=== PATIENT | female | born 1955 | race Caucasian/White ===

== ENCOUNTER → 2023-09-20 | Outpatient (CLI) | payer MEDICARE, OTHER ==
[~2023-09-20] VITALS: Ht 162.6 cm; Wt 65.9 kg
[~2023-09-20] MED LIST: ALBU6.7H6 INH; ALEC150C PO; AMLO1TAB24 PO; AMOX500T PO; ATEN50TA2 PO; FURO20TA2 PO; HYDR-4517 PO; LEVO1TAB39 PO; METF500T13 PO; MUCI600T31 PO; OMEP-173 PO; POTA10TA67 PO; PRED10TA2 PO; PREG25CA PO; PREG50CA3 PO; SENN-186 PO; SIMV40TA20 PO; TRAZ-257 PO; XANA1TAB2 PO; ZOLO100T PO
[2023-09-20 10:37] VITALS: BP 110/67; O2SAT 95
== END ==
LOC: M PAL 10:32
PROVIDERS: ATTEND Nurse Practitioner Adult Health
DX: C34.12 Malignant neoplasm of upper lobe, left bronchus or lung (principal); D63.8 Anemia in other chronic diseases classified elsewhere; G89.3 Neoplasm related pain (acute) (chronic); G89.29 Other chronic pain; G89.18 Other acute postprocedural pain; Z51.5 Encounter for palliative care; M25.561 Pain in right knee; M25.562 Pain in left knee; K59.00 Constipation, unspecified; R22.41 Localized swelling, mass and lump, right lower limb; R05.9 Cough, unspecified; R50.9 Fever, unspecified; R06.09 Other forms of dyspnea; F41.9 Anxiety disorder, unspecified; F32.9 Major depressive disorder, single episode, unspecified; R29.6 Repeated falls; Z90.2 Acquired absence of lung [part of]; Z92.21 Personal history of antineoplastic chemotherapy; Z92.3 Personal history of irradiation; Z79.622 Long term (current) use of Janus kinase inhibitor; Z90.710 Acquired absence of both cervix and uterus; Z90.722 Acquired absence of ovaries, bilateral; Z90.79 Acquired absence of other genital organ(s); Z79.84 Long term (current) use of oral hypoglycemic drugs; Z79.899 Other long term (current) drug therapy

== ENCOUNTER → 2023-10-10 | Outpatient (CLI) | payer MEDICARE, OTHER ==
[~2023-10-10] MED LIST changes: -PREG50CA3 PO
== END ==
LOC: M PLARAD 14:10
PROVIDERS: ATTEND Specialist
DX: C34.31 Malignant neoplasm of lower lobe, right bronchus or lung (principal); K44.9 Diaphragmatic hernia without obstruction or gangrene
CPT/HCPCS: 78815; A9552

== ENCOUNTER → 2023-10-18 | Outpatient (CLI) | payer MEDICARE, OTHER ==
[~2023-10-18] VITALS: Ht 162.6 cm; Wt 65.5 kg
[~2023-10-18] MED LIST changes: +PREG50CA3 PO
[2023-10-18 13:01] VITALS: BP 118/72; O2SAT 99
== END ==
LOC: M PAL 12:48
PROVIDERS: ATTEND Nurse Practitioner Adult Health
DX: Z51.5 Encounter for palliative care (principal); C34.12 Malignant neoplasm of upper lobe, left bronchus or lung; G89.18 Other acute postprocedural pain; G89.3 Neoplasm related pain (acute) (chronic); G89.29 Other chronic pain; F32.A Depression, unspecified; F41.9 Anxiety disorder, unspecified; R05.9 Cough, unspecified; R06.09 Other forms of dyspnea; R29.6 Repeated falls; Z90.2 Acquired absence of lung [part of]; Z92.21 Personal history of antineoplastic chemotherapy; Z92.3 Personal history of irradiation; Z79.622 Long term (current) use of Janus kinase inhibitor; Z90.710 Acquired absence of both cervix and uterus; Z90.722 Acquired absence of ovaries, bilateral; Z90.79 Acquired absence of other genital organ(s); Z79.84 Long term (current) use of oral hypoglycemic drugs; Z79.899 Other long term (current) drug therapy

== ENCOUNTER → 2023-11-15 | Outpatient (CLI) | payer MEDICARE, OTHER ==
[~2023-11-15] VITALS: Ht 162.6 cm; Wt 65.6 kg
[~2023-11-15] MED LIST changes: +COMBAER6 INH
[2023-11-15 13:09] VITALS: BP 98/56; O2SAT 98
== END ==
LOC: M PAL 13:02
PROVIDERS: ATTEND Nurse Practitioner Adult Health
DX: G89.3 Neoplasm related pain (acute) (chronic) (principal); G89.29 Other chronic pain; C34.12 Malignant neoplasm of upper lobe, left bronchus or lung; F32.A Depression, unspecified; F41.9 Anxiety disorder, unspecified; R05.9 Cough, unspecified; R06.09 Other forms of dyspnea; D64.9 Anemia, unspecified; K59.00 Constipation, unspecified; Z51.5 Encounter for palliative care; R29.6 Repeated falls; Z79.622 Long term (current) use of Janus kinase inhibitor; Z79.84 Long term (current) use of oral hypoglycemic drugs; Z79.899 Other long term (current) drug therapy; Z90.2 Acquired absence of lung [part of]; Z90.710 Acquired absence of both cervix and uterus; Z90.722 Acquired absence of ovaries, bilateral; Z90.79 Acquired absence of other genital organ(s); Z92.21 Personal history of antineoplastic chemotherapy; Z92.3 Personal history of irradiation

== ENCOUNTER → 2023-12-29 | Outpatient (CLI) | payer MEDICARE, OTHER ==
[~2023-12-29] VITALS: Ht 162.6 cm; Wt 66.1 kg
[~2023-12-29] MED LIST changes: +AMOX500C PO; +PERC10TA26 PO; +POTA-151 PO
[2023-12-29 14:03] VITALS: BP 122/74; O2SAT 97
== END ==
LOC: M PAL 13:30
PROVIDERS: ATTEND Nurse Practitioner Adult Health
DX: G89.3 Neoplasm related pain (acute) (chronic) (principal); G89.29 Other chronic pain; C34.12 Malignant neoplasm of upper lobe, left bronchus or lung; F32.A Depression, unspecified; F41.9 Anxiety disorder, unspecified; R05.9 Cough, unspecified; R06.09 Other forms of dyspnea; Z51.5 Encounter for palliative care; R29.6 Repeated falls; Z79.622 Long term (current) use of Janus kinase inhibitor; Z79.84 Long term (current) use of oral hypoglycemic drugs; Z79.899 Other long term (current) drug therapy; Z90.2 Acquired absence of lung [part of]; Z90.710 Acquired absence of both cervix and uterus; Z90.722 Acquired absence of ovaries, bilateral; Z90.79 Acquired absence of other genital organ(s); Z92.21 Personal history of antineoplastic chemotherapy; Z92.3 Personal history of irradiation

== ENCOUNTER → 2024-01-04 | Outpatient (CLI) | payer MEDICARE, OTHER ==
[~2024-01-04] MED LIST changes: +ALBU8.5H
== END ==
LOC: M PLAIMG 13:39
PROVIDERS: ATTEND Internal Medicine Critical Care Medicine
DX: R91.8 Other nonspecific abnormal finding of lung field (principal); J90 Pleural effusion, not elsewhere classified; J18.9 Pneumonia, unspecified organism

== ENCOUNTER → 2024-01-05 | Outpatient (REF) | payer MEDICARE, OTHER ==
[~2024-01-05] MED LIST changes: -ALBU8.5H
[2024-01-05 15:33] LABS: C REACTIVE PROTEIN QUANTITATIV < 0.40 MG/DL (<1.0)
[2024-01-05 15:38] LABS: FREE T4 1.07 NG/DL (0.89-1.76); THYROID STIMULATING HORMONE 3.545 uIU/ML (0.55-4.78)
[2024-01-05 15:39] LABS: TOTAL 25(OH) VITAMIN D 29.3 NG/ML (20.0-100.0)
== END ==
LOC: M LAB REF 14:45
PROVIDERS: ATTEND Internal Medicine Critical Care Medicine
DX: R53.83 Other fatigue (principal); Z79.899 Other long term (current) drug therapy

== ENCOUNTER → 2024-01-06 | Outpatient (CLI) | payer MEDICARE, OTHER ==
[~2024-01-06] MED LIST changes: +ALBU8.5H; +ISOVUE-370 76% 100ML VIAL As Ordered ONE
== END ==
LOC: M RAD 12:54
PROVIDERS: ATTEND Specialist
DX: C34.90 Malignant neoplasm of unspecified part of unspecified bronchus or lung (principal)
CPT/HCPCS: 71260; Q9967

== ENCOUNTER → 2024-04-02 | Outpatient (REF) | payer MEDICARE, OTHER ==
[~2024-04-02] MED LIST changes: +ALPR1TAB3 PO; +BACT800T5 PO; +ERGO500029 PO; +GUAI600T54 PO; +HYDR-4517; -ISOVUE-370 76% 100ML VIAL As Ordered ONE; +OMEP40CA4 PO; +OXYC10TA3; +OXYC10TA3 PO; +SENN-83 PO; +VALT1TAB PO
[2024-04-02 13:43] LABS: HEMOGLOBIN A1c 4.9 % (4.0-6.0)
[2024-04-02 13:50] LABS: ALBUMIN 3.7 G/DL (3.2-5.2); BILIRUBIN,TOTAL 0.5 MG/DL (0.3-1.2); CALCIUM LEVEL 9.4 MG/DL (8.3-10.6); CHOLESTEROL RISK RATIO 2.96 (<5); CREATININE FOR GFR 1.27 MG/DL (0.55-1.30); GLOMERULAR FILTRATION RATE 44.5 (>45); HDL CHOLESTEROL 54.7 MG/DL (>40); LDL CHOLESTEROL 61.1 MG/DL (<100); NON-HDL-C 107.3 MG/DL; POTASSIUM SERUM 3.8 MMOL/L (3.5-5.1); TOTAL PROTEIN 6.5 G/DL (5.7-8.2)
== END ==
LOC: M LAB REF 13:03
PROVIDERS: ATTEND Internal Medicine
DX: E78.5 Hyperlipidemia, unspecified (principal); E11.9 Type 2 diabetes mellitus without complications

== ENCOUNTER → 2024-04-10 | Outpatient (CLI) | payer MEDICARE, OTHER ==
[~2024-04-10] MED LIST changes: -ALBU8.5H; +ALBU8.5H INH; +CYMB60CA4 PO; +DOXY-323 PO; +DULO1CAP6 PO; +ELIQ5TAB PO; +LEVO750T14 PO; +MUCI1TAB16 PO; +OMEP40CA5 PO; +SENN-187 PO; -SENN-83 PO; +VALA1TAB5 PO
== END ==
LOC: M PAL 13:23
PROVIDERS: ATTEND Nurse Practitioner Adult Health
DX: G89.3 Neoplasm related pain (acute) (chronic) (principal); G89.29 Other chronic pain; C34.12 Malignant neoplasm of upper lobe, left bronchus or lung; F32.A Depression, unspecified; F41.9 Anxiety disorder, unspecified; R06.09 Other forms of dyspnea; Z92.3 Personal history of irradiation; Z51.5 Encounter for palliative care; R29.6 Repeated falls; Z79.622 Long term (current) use of Janus kinase inhibitor; Z79.84 Long term (current) use of oral hypoglycemic drugs; Z79.891 Long term (current) use of opiate analgesic; Z79.899 Other long term (current) drug therapy; Z90.2 Acquired absence of lung [part of]; Z90.710 Acquired absence of both cervix and uterus; Z90.722 Acquired absence of ovaries, bilateral; Z90.79 Acquired absence of other genital organ(s); Z92.21 Personal history of antineoplastic chemotherapy; R05.9 Cough, unspecified

== ENCOUNTER → 2024-04-18 | Outpatient (CLI) | payer MEDICARE, OTHER ==
[~2024-04-18] MED LIST changes: +ALBU8.5H; -ALBU8.5H INH; -CYMB60CA4 PO; -DOXY-323 PO; -ELIQ5TAB PO; +ISOVUE-370 76% 100ML VIAL As Ordered ONE; -LEVO750T14 PO; -MUCI1TAB16 PO; -OMEP40CA5 PO; +PROHANCE 279.3MG/ML 15ML VIAL As Ordered ONE; -SENN-187 PO; +SENN-83 PO; -VALA1TAB5 PO
== END ==
LOC: M RAD 12:29
PROVIDERS: ATTEND Specialist
DX: C34.90 Malignant neoplasm of unspecified part of unspecified bronchus or lung (principal); K76.0 Fatty (change of) liver, not elsewhere classified
CPT/HCPCS: 70553; 71260; A9576; Q9967

== ENCOUNTER 2024-05-24 02:29 | Inpatient (IN) | payer MEDICARE, OTHER ==
[~2024-05-24] VITALS: Ht 162.6 cm; Wt 71.8 kg
[~2024-05-24 02:29] MED LIST changes: -ALBU8.5H; +ALBU8.5H INH; +CYMB60CA4 PO; -ISOVUE-370 76% 100ML VIAL As Ordered ONE; -PROHANCE 279.3MG/ML 15ML VIAL As Ordered ONE; +SENN-187 PO; -SENN-83 PO
[2024-05-24 04:16] LABS: VENOUS BASE EXCESS 4.4 (-2.0-2.0); VENOUS HCO3 29.8 MMOL/L (23.0-27.0); VENOUS O2 SATURATION 76.2 % (60.0-80.0); VENOUS PARTIAL PRESSURE CO2 48.4 mmHg (38.0-50.0); VENOUS PARTIAL PRESSURE O2 44.6 mmHg (30.0-50.0); VENOUS PH 7.407 UNITS (7.330-7.430); VENOUS STANDARD HCO3 28.1 MMOL/L; VENOUS TOTAL CO2 31.3 MMOL/L (24.0-28.0)
[2024-05-24 04:21] LABS: BASO % 0.4 % (0.0-1.0); EOS # 1.3 10^3/uL (0.0-0.5); EOS % 13.2 % (0.0-3.0); HEMATOCRIT 25.7 % (36.0-47.0); HEMOGLOBIN 8.7 g/dl (12.0-15.5); LYMPH # 1.2 10^3/uL (1.5-5.0); LYMPH % 12.5 % (24.0-44.0); MEAN CORPUSCULAR HEMOGLOBIN 35.2 pg (27.0-33.0); MEAN CORPUSCULAR HGB CONC 33.9 g/dl (32.0-36.5); MONO # 0.8 10^3/uL (0.0-0.8); MONO % 8.2 % (2.0-8.0); NEUTROPHILS # 6.4 10^3/uL (1.5-8.5); NEUTROPHILS % 65.3 % (36.0-66.0); PLATELET COUNT, AUTOMATED 174 10^3/uL (150-450); RED BLOOD COUNT 2.47 10^6/uL (4.00-5.40); WHITE BLOOD COUNT 9.8 10^3/uL (4.0-10.0)
[2024-05-24 04:55] LABS: ALBUMIN 3.3 G/DL (3.2-5.2); BILIRUBIN,DIRECT 0.2 MG/DL (<0.4); BILIRUBIN,TOTAL 0.5 MG/DL (0.3-1.2); CALCIUM LEVEL 9.2 MG/DL (8.3-10.6); CK-MB VALUE MASS 4.6 NG/ML (<3.6); CREATININE FOR GFR 1.3 MG/DL (0.55-1.30); GLOMERULAR FILTRATION RATE 43.2 (>45); POTASSIUM SERUM 3.4 MMOL/L (3.5-5.1); TOTAL PROTEIN 6.4 G/DL (5.7-8.2)
[2024-05-24 05:05] LABS: MB/CK RELATIVE INDEX 1.2 (< OR =4)
[2024-05-24 06:20] LABS: CK-MB VALUE MASS 4.4 NG/ML (<3.6); MB/CK RELATIVE INDEX 1.33 (< OR =4)
[2024-05-24] MEDS ORDERED: ISOVUE-370 76% 100ML VIAL As Ordered ONE (06:52)
[2024-05-24 08:20] VITALS: O2SAT 93
[2024-05-24] MEDS ORDERED: VALA1TAB5 PO (09:59)
[2024-05-24] MEDS ORDERED: OMEP40CA5 PO (09:59)
[2024-05-24] MEDS ORDERED: ALPR1TAB3 PO (09:59)
[2024-05-24] MEDS ORDERED: OXYC10TA3 PO (10:03)
[2024-05-24] MEDS ORDERED: LEVO1TAB39 PO (10:03)
[2024-05-24] MEDS ORDERED: HOME MED LIST COMPLETE! XX SCH (10:05)
[2024-05-24] MEDS ORDERED: traZODone 100 MG TAB PO PRN (12:05)
[2024-05-24] MEDS: NS 1,000 ML IV ONE (13:47)
[2024-05-24] MEDS: atenoloL 50 MG TAB PO SCH (14:02)
[2024-05-24] MEDS: SERTRALINE 100 MG TAB PO SCH (14:03)
[2024-05-24] MEDS: OMEPRAZOLE 20MG CAP PO SCH (14:17)
[2024-05-24] MEDS: DOXYCYCLINE HYCLATE 100MG TABLET PO SCH (14:17)
[2024-05-24] MEDS: HYDROCORTISONE 100MG/2ML VIAL IV ONE (14:18)
[2024-05-24] MEDS: guaiFENesin ER TABLET 600 MG TAB PO SCH (14:18)
[2024-05-24] MEDS: HEPARIN SOD (PORCINE) 5000UNITS/ML 1ML VIAL/SYRINGE SQ SCH (14:19)
[2024-05-24 14:38] VITALS: BP 119/58; O2SAT 97
[2024-05-24] MEDS: CEFEPIME HCL 2 GM in D5W MINI-BAG PLUS 50 ML IV SCH (15:45)
[2024-05-24] MEDS: IPRATROPIUM 0.5MG/ALBUTEROL 2.5MG INH SOL UD 3ML (DUONEB) NEB SCH (15:58)
[2024-05-24 16:12] VITALS: BP 119/56; TEMP 98.5; O2SAT 98
[2024-05-24] MEDS: POTASSIUM CHLORIDE 10MEQ SR TABLET PO ONE (17:06)
[2024-05-24 19:59] VITALS: BP 130/66; TEMP 97.3; O2SAT 98
[2024-05-24] MEDS: oxyCODONE 5MG TAB PO ONE (20:13)
[2024-05-24] MEDS: SIMVASTATIN 40 MG TAB PO SCH (20:14)
[2024-05-24] MEDS: ACETAMINOPHEN TAB 650MG DOSE (2X325MG) PO ONE (20:14)
[2024-05-24] MEDS: ALECTINIB HCL 150 MG PO SCH (20:16)
[2024-05-24] MEDS: ALPRAZolam 0.5 MG TAB PO PRN (20:22)
[2024-05-24] MEDS ORDERED: ENOXAPARIN 100MG/1ML SYRINGE (J1650 PER 10MG) SC SCH (21:00)
[2024-05-24 23:56] VITALS: BP 107/52; TEMP 97.4; O2SAT 94
[2024-05-25] MEDS ORDERED: UNRESOLVED PATIENT OWN MED ORDER XX SCH (00:01)
[2024-05-25] MEDS: oxyCODONE 5MG TAB PO PRN (00:37)
[2024-05-25 04:09] VITALS: BP 101/50; TEMP 97.4; O2SAT 98
[2024-05-25 07:59] VITALS: BP 115/56; TEMP 97; O2SAT 95
[2024-05-25] MEDS: SODIUM CHLORIDE 0.9% INJ 10 ML SYR IV SCH (09:00)
[2024-05-25] MEDS ORDERED: SODIUM CHLORIDE 0.9% INJ 10 ML SYR IV PRN (10:15)
[2024-05-25 11:43] VITALS: BP 129/65; TEMP 97.2; O2SAT 97
[2024-05-25 13:17] LABS: PROCALCITONIN 0.24 ng/ml
[2024-05-25 15:58] VITALS: BP 124/66; TEMP 98.4; O2SAT 99
[2024-05-25 18:54] VITALS: BP 131/63; O2SAT 99
[2024-05-25 23:27] VITALS: BP 118/58; TEMP 98.5; O2SAT 96
[2024-05-26] MEDS: BENZONATATE 100MG CAPSULE PO ONE (02:27)
[2024-05-26 03:45] VITALS: BP 118/63; TEMP 97.1; O2SAT 99
[2024-05-26 05:44] LABS: HEMATOCRIT 26.5 % (36.0-47.0); HEMOGLOBIN 8.8 g/dl (12.0-15.5); MEAN CORPUSCULAR HEMOGLOBIN 34.6 pg (27.0-33.0); MEAN CORPUSCULAR HGB CONC 33.2 g/dl (32.0-36.5); MEAN CORPUSCULAR VOLUME 104.3 fl (80.0-96.0); PLATELET COUNT, AUTOMATED 178 10^3/uL (150-450); RED BLOOD COUNT 2.54 10^6/uL (4.00-5.40); WHITE BLOOD COUNT 6.7 10^3/uL (4.0-10.0)
[2024-05-26 06:11] LABS: ALBUMIN 3.3 G/DL (3.2-5.2); BILIRUBIN,TOTAL 0.4 MG/DL (0.3-1.2); CALCIUM LEVEL 9.2 MG/DL (8.3-10.6); GLOMERULAR FILTRATION RATE 58.5 (>45); POTASSIUM SERUM 3.9 MMOL/L (3.5-5.1); TOTAL PROTEIN 6.2 G/DL (5.7-8.2)
[2024-05-26 07:44] VITALS: BP 146/68; TEMP 98.3; O2SAT 98
[2024-05-26] MEDS: ONDANSETRON 4MG ORAL DISINTEGRATING TAB PO PRN (07:48)
[2024-05-26 11:54] VITALS: BP 123/60; TEMP 97.9; O2SAT 96
[2024-05-26] MEDS ORDERED: ELIQ5TAB PO (12:15)
[2024-05-26] MEDS ORDERED: LEVO750T14 PO (12:15)
[2024-05-26] MEDS ORDERED: DOXY-323 PO (12:17)
[2024-05-26] MEDS ORDERED: MUCI1TAB16 PO (12:25)
[2024-05-26] MEDS: SENNA 8.6 MG TAB (SENOKOT) PO SCH (12:49)
[2024-05-26] MEDS: MIRALAX *UNIT DOSE* 17GM PACKET PO SCH (12:49)
[2024-05-26] MEDS: DARBEPOETIN 40MCG/0.4ML *NON-DIALYSIS* SYRINGE SQ ONE (14:00)
[2024-05-28 19:12] LABS: URINE STREP PNEUMONIAE ANTIGEN NOT DETECTED (NOT DETECT)
== END 2024-05-26 14:30 | disposition home or self-care (01) | DRG 178 ==
LOC: M ED 02:29 → M ED INP 12:04 → M PCU 14:33
PROVIDERS: ADMIT Internal Medicine; ATTEND Internal Medicine
DX: J15.69 Pneumonia due to other Gram-negative bacteria (principal); J44.0 Chronic obstructive pulmonary disease with (acute) lower respiratory infection; R04.2 Hemoptysis; C34.12 Malignant neoplasm of upper lobe, left bronchus or lung; D84.821 Immunodeficiency due to drugs; I48.0 Paroxysmal atrial fibrillation; F41.9 Anxiety disorder, unspecified; I10 Essential (primary) hypertension; F32.A Depression, unspecified; E78.5 Hyperlipidemia, unspecified; M79.7 Fibromyalgia; D63.8 Anemia in other chronic diseases classified elsewhere; E87.6 Hypokalemia; K21.9 Gastro-esophageal reflux disease without esophagitis; Z79.01 Long term (current) use of anticoagulants; Z79.899 Other long term (current) drug therapy; Z92.21 Personal history of antineoplastic chemotherapy; Z92.3 Personal history of irradiation

== ENCOUNTER → 2024-05-26 | Outpatient (CLI) | payer MEDICARE ==
[~2024-05-26] MED LIST changes: +DOXY-323 PO; +ELIQ5TAB PO; +LEVO750T14 PO; +MUCI1TAB16 PO; +OMEP40CA5 PO; +VALA1TAB5 PO
== END ==
LOC: M EKG 14:36
PROVIDERS: ATTEND Internal Medicine
DX: I48.0 Paroxysmal atrial fibrillation (principal)

== ENCOUNTER → 2024-06-11 | Outpatient (CLI) | payer MEDICARE ==
[~2024-06-11] VITALS: Ht 162.6 cm; Wt 69.7 kg
[~2024-06-11] MED LIST changes: +CEPH500C PO; -DOXY-323 PO; +DOXY-441 PO; +ONDA-284 PO
[2024-06-11 13:09] VITALS: BP 119/64; O2SAT 95
== END ==
LOC: M PAL 12:58
PROVIDERS: ATTEND Nurse Practitioner Adult Health
DX: G89.3 Neoplasm related pain (acute) (chronic) (principal); G89.29 Other chronic pain; C34.12 Malignant neoplasm of upper lobe, left bronchus or lung; F32.A Depression, unspecified; F41.9 Anxiety disorder, unspecified; R06.09 Other forms of dyspnea; R05.9 Cough, unspecified; Z51.5 Encounter for palliative care; Z79.01 Long term (current) use of anticoagulants; Z79.622 Long term (current) use of Janus kinase inhibitor; Z79.891 Long term (current) use of opiate analgesic; Z79.899 Other long term (current) drug therapy; Z90.2 Acquired absence of lung [part of]; Z90.710 Acquired absence of both cervix and uterus; Z90.722 Acquired absence of ovaries, bilateral; Z90.79 Acquired absence of other genital organ(s); Z92.21 Personal history of antineoplastic chemotherapy; Z92.3 Personal history of irradiation

== ENCOUNTER → 2024-07-18 | Outpatient (CLI) | payer MEDICARE, OTHER ==
[~2024-07-18] VITALS: Ht 162.6 cm; Wt 70.5 kg
[~2024-07-18] MED LIST changes: -LEVO750T14 PO; +LEVO75TAB PO; +MORP-69 PO
[2024-07-18 11:19] VITALS: BP 131/77; O2SAT 93
== END ==
LOC: M PAL 11:10
PROVIDERS: ATTEND Nurse Practitioner Adult Health
DX: G89.3 Neoplasm related pain (acute) (chronic) (principal); G89.29 Other chronic pain; C34.12 Malignant neoplasm of upper lobe, left bronchus or lung; F41.8 Other specified anxiety disorders; J45.998 Other asthma; Z51.5 Encounter for palliative care; Z79.01 Long term (current) use of anticoagulants; Z79.51 Long term (current) use of inhaled steroids; Z79.622 Long term (current) use of Janus kinase inhibitor; Z79.891 Long term (current) use of opiate analgesic; Z79.899 Other long term (current) drug therapy; Z90.2 Acquired absence of lung [part of]; Z90.710 Acquired absence of both cervix and uterus; Z90.722 Acquired absence of ovaries, bilateral; Z90.79 Acquired absence of other genital organ(s); Z92.21 Personal history of antineoplastic chemotherapy; Z92.3 Personal history of irradiation

== ENCOUNTER → 2024-08-28 | Outpatient (CLI) | payer MEDICARE, OTHER ==
[~2024-08-28] VITALS: Ht 162.6 cm; Wt 70.1 kg
[2024-08-28 14:07] VITALS: BP 125/72; O2SAT 97
== END ==
LOC: M PAL 13:36
PROVIDERS: ATTEND Nurse Practitioner Adult Health
DX: Z51.5 Encounter for palliative care (principal); G89.3 Neoplasm related pain (acute) (chronic); G89.29 Other chronic pain; C34.12 Malignant neoplasm of upper lobe, left bronchus or lung; F41.8 Other specified anxiety disorders; R05.9 Cough, unspecified; J45.998 Other asthma; Z79.01 Long term (current) use of anticoagulants; Z79.51 Long term (current) use of inhaled steroids; Z79.622 Long term (current) use of Janus kinase inhibitor; Z79.891 Long term (current) use of opiate analgesic; Z79.899 Other long term (current) drug therapy; Z90.2 Acquired absence of lung [part of]; Z90.710 Acquired absence of both cervix and uterus; Z90.722 Acquired absence of ovaries, bilateral; Z90.79 Acquired absence of other genital organ(s); Z92.21 Personal history of antineoplastic chemotherapy; Z92.3 Personal history of irradiation; R06.02 Shortness of breath

== ENCOUNTER → 2024-09-13 | Outpatient (CLI) | payer MEDICARE, OTHER ==
[~2024-09-13] MED LIST changes: +ISOVUE-370 76% 100ML VIAL As Ordered ONE; +TOPI25TA10; +TORS20TA2
== END ==
LOC: M RAD 14:05
PROVIDERS: ATTEND Specialist
DX: C34.90 Malignant neoplasm of unspecified part of unspecified bronchus or lung (principal)
CPT/HCPCS: 71260; J1642; Q9967

== ENCOUNTER → 2024-10-04 | Outpatient (CLI) | payer MEDICARE, OTHER ==
[~2024-10-04] VITALS: Ht 162.6 cm; Wt 71.0 kg
[~2024-10-04] MED LIST changes: -ISOVUE-370 76% 100ML VIAL As Ordered ONE
[2024-10-04 14:03] VITALS: BP 130/59; O2SAT 98
== END ==
LOC: M PAL 13:39
PROVIDERS: ATTEND Family Medicine
DX: Z51.5 Encounter for palliative care (principal); G89.3 Neoplasm related pain (acute) (chronic); G89.29 Other chronic pain; R11.0 Nausea; F41.9 Anxiety disorder, unspecified; C34.90 Malignant neoplasm of unspecified part of unspecified bronchus or lung; Z87.898 Personal history of other specified conditions; Z90.2 Acquired absence of lung [part of]; Z79.01 Long term (current) use of anticoagulants; Z79.891 Long term (current) use of opiate analgesic; Z79.899 Other long term (current) drug therapy; Z92.21 Personal history of antineoplastic chemotherapy; Z92.23 Personal history of estrogen therapy

== ENCOUNTER → 2024-11-21 | Outpatient (CLI) | payer MEDICARE, OTHER ==
[~2024-11-21] VITALS: Ht 162.6 cm; Wt 73.1 kg
[~2024-11-21] MED LIST changes: +POTA10PO PO
[2024-11-21 13:13] VITALS: BP 134/65; O2SAT 97
== END ==
LOC: M PAL 12:53
PROVIDERS: ATTEND Family Medicine
DX: Z51.5 Encounter for palliative care (principal); C34.90 Malignant neoplasm of unspecified part of unspecified bronchus or lung; Z90.2 Acquired absence of lung [part of]; Z92.21 Personal history of antineoplastic chemotherapy; Z92.3 Personal history of irradiation; Z79.891 Long term (current) use of opiate analgesic; Z79.899 Other long term (current) drug therapy; Z79.83 Long term (current) use of bisphosphonates; K59.00 Constipation, unspecified
CPT/HCPCS: G0463; G2212

== ENCOUNTER 2024-12-20 15:53 | Inpatient (IN) | payer MEDICARE, OTHER ==
[~2024-12-20] VITALS: Ht 165.1 cm; Wt 70.8 kg
[~2024-12-20 15:53] MED LIST changes: -TOPI25TA10; +TOPI25TA10 PO; -TORS20TA2; +TORS20TA2 PO
[2024-12-20] MEDS ORDERED: SODIUM CHLORIDE 0.9% INJ 10 ML SYR IV PRN (16:25)
[2024-12-20 17:08] LABS: BASO % 0.2 % (0.0-1.0); EOS % 0.2 % (0.0-3.0); HEMATOCRIT 24.3 % (36.0-47.0); HEMOGLOBIN 7.8 g/dl (12.0-15.5); LYMPH # 0.8 10^3/uL (1.5-5.0); LYMPH % 4.9 % (24.0-44.0); MEAN CORPUSCULAR HEMOGLOBIN 30.6 pg (27.0-33.0); MEAN CORPUSCULAR HGB CONC 32.1 g/dl (32.0-36.5); MEAN CORPUSCULAR VOLUME 95.3 fl (80.0-96.0); MONO # 1.5 10^3/uL (0.0-0.8); MONO % 8.4 % (2.0-8.0); NEUTROPHILS # 14.7 10^3/uL (1.5-8.5); NEUTROPHILS % 84.7 % (36.0-66.0); PLATELET COUNT, AUTOMATED 221 10^3/uL (150-450); RED BLOOD COUNT 2.55 10^6/uL (4.00-5.40); WHITE BLOOD COUNT 17.3 10^3/uL (4.0-10.0)
[2024-12-20] MEDS: methylPREDNISolone 125MG 2ML VIAL IV ONE (17:16)
[2024-12-20] MEDS: IPRATROPIUM 0.5MG/ALBUTEROL 2.5MG INH SOL UD 3ML NEB ONE (17:21)
[2024-12-20 18:10] LABS: ALBUMIN 3.1 G/DL (3.2-5.2); BILIRUBIN,DIRECT 0.2 MG/DL (<0.4); BILIRUBIN,TOTAL 0.5 MG/DL (0.3-1.2); CALCIUM LEVEL 8.2 MG/DL (8.3-10.6); CREATININE FOR GFR 1.23 MG/DL (0.55-1.30); GLOMERULAR FILTRATION RATE 47.6 (>45); POTASSIUM SERUM 3.2 MMOL/L (3.5-5.1); THYROID STIMULATING HORMONE 1.158 uIU/ML (0.55-4.78); THYROXINE (T4) 4.9 UG/DL (4.5-10.9); TOTAL PROTEIN 5.8 G/DL (5.7-8.2)
[2024-12-20 18:48] LABS: PROCALCITONIN 5.25 ng/ml
[2024-12-20] MEDS: NS 500 ML IV ONE (19:05)
[2024-12-20] MEDS ORDERED: HOME MED LIST COMPLETE! XX SCH (20:35)
[2024-12-20] MEDS ORDERED: PANT40TA29 PO (20:35)
[2024-12-20] MEDS ORDERED: ELIQ5TAB PO (20:35)
[2024-12-20] MEDS: AZITHROMYCIN INJ 500 MG, VIAL MATE ADAPTER 1 EACH in D5W 250 ML IV ONE (20:42)
[2024-12-20] MEDS: cefTRIAXone SOD 1 GM in DEXTROSE 5% (D5W) ADV/MINI-BAG 50 ML IV ONE (20:42)
[2024-12-20] MEDS ORDERED: MAALOX 30 ML SUSP *UDC PO PRN (21:10)
[2024-12-20] MEDS ORDERED: ACETAMINOPHEN 325 MG TAB PO PRN (21:10)
[2024-12-20] MEDS ORDERED: traZODone 100 MG TAB PO PRN (22:05)
[2024-12-20] MEDS: APIXABAN 5 MG TAB (ELIQUIS) PO SCH (22:30)
[2024-12-20] MEDS: SIMVASTATIN 40 MG TAB PO SCH (22:30)
[2024-12-20] MEDS: oxyCODONE 5MG TAB PO PRN (22:31)
[2024-12-20 23:14] VITALS: BP 133/75; TEMP 97.1; O2SAT 93
[2024-12-20] MEDS ORDERED: SENNA 8.6 MG TAB (SENOKOT) PO PRN (23:20)
[2024-12-20] MEDS: ONDANSETRON 4MG ORAL DISINTEGRATING TAB PO PRN (23:59)
[2024-12-20] MEDS: ALPRAZolam 0.5 MG TAB PO PRN (23:59)
[2024-12-21] VITALS (9 sets, daily range): BP systolic 104–145; BP diastolic 47–63; TEMP 97.3–98.4; O2SAT 91–96
[2024-12-21] MEDS: ALECTINIB 150 MG PO SCH (00:47)
[2024-12-21] MEDS: PIPERACILLIN/TAZOBACTAM SOD 3.375 GM in DEXTROSE 5% (D5W) ADV/MINI-BAG 50 ML IV SCH (00:47)
[2024-12-21] MEDS: KCL 10MEQ/100ML SWI (KRUN) 10 MEQ in IV 1 EA IV SCH (00:48)
[2024-12-21] MEDS: DULoxetine 30MG CAPSULE (CYMBALTA) PO SCH (08:56)
[2024-12-21] MEDS: DOCUSATE SODIUM 100MG CAPSULE PO SCH (08:56)
[2024-12-21] MEDS: PANTOPRAZOLE 40MG TAB (PROTONIX) PO SCH (08:56)
[2024-12-21] MEDS: MIDODRINE 5 MG TAB PO SCH (08:57)
[2024-12-21] MEDS: atenoloL 25 MG TAB PO SCH (08:57)
[2024-12-21] MEDS: DIGOXIN INJ 0.5 MG/2 ML AMP IV ONE (08:57)
[2024-12-21] MEDS ORDERED: ENOXAPARIN 40MG/0.4ML SYRINGE (J1650 PER 10MG) SC SCH (09:00)
[2024-12-21] MEDS ORDERED: SODIUM CHLORIDE 0.9% INJ 10 ML SYR IV SCH (09:00)
[2024-12-21] MEDS ORDERED: atenoloL 50 MG TAB PO SCH (09:00)
[2024-12-21] MEDS: FUROSEMIDE 40MG/4ML VIAL IV ONE (09:02)
[2024-12-21 09:40] LABS: BASO % 0.1 % (0.0-1.0); HEMATOCRIT 22.6 % (36.0-47.0); HEMOGLOBIN 7.2 g/dl (12.0-15.5); LYMPH # 0.7 10^3/uL (1.5-5.0); LYMPH % 4.1 % (24.0-44.0); MEAN CORPUSCULAR HEMOGLOBIN 30.5 pg (27.0-33.0); MEAN CORPUSCULAR HGB CONC 31.9 g/dl (32.0-36.5); MEAN CORPUSCULAR VOLUME 95.8 fl (80.0-96.0); MONO # 0.7 10^3/uL (0.0-0.8); MONO % 4.1 % (2.0-8.0); NEUTROPHILS # 14.9 10^3/uL (1.5-8.5); NEUTROPHILS % 90.2 % (36.0-66.0); PLATELET COUNT, AUTOMATED 230 10^3/uL (150-450); RED BLOOD COUNT 2.36 10^6/uL (4.00-5.40); WHITE BLOOD COUNT 16.5 10^3/uL (4.0-10.0)
[2024-12-21 10:04] LABS: CREATININE FOR GFR 1.25 MG/DL (0.55-1.30); GLOMERULAR FILTRATION RATE 46.7 (>45); MAGNESIUM LEVEL 1.6 MG/DL (1.8-2.4); POTASSIUM SERUM 3.7 MMOL/L (3.5-5.1)
[2024-12-21] MEDS: MAG SULF 1GM/100ML (MAG RUN) 1 GM in IV 1 EA IV ONE (11:17)
[2024-12-21] MEDS: POTASSIUM CHLORIDE 10MEQ SR TABLET PO ONE (11:17)
[2024-12-21] MEDS ORDERED: SODIUM CHLORIDE 0.9% INJ 10 ML SYR IV PRN (11:45)
[2024-12-21] MEDS: DIGOXIN INJ 0.5 MG/2 ML AMP IV SCH (14:11)
[2024-12-21] MEDS: ALBUTEROL 90 MCG/ACT 8GM HFA INHALER INH PRN (23:01)
[2024-12-22] VITALS (9 sets, daily range): BP systolic 124–143; BP diastolic 55–71; TEMP 97.3–98.1; O2SAT 94–99
[2024-12-22 06:13] LABS: HEMATOCRIT 22.4 % (36.0-47.0); HEMOGLOBIN 7.1 g/dl (12.0-15.5); MEAN CORPUSCULAR HEMOGLOBIN 30.5 pg (27.0-33.0); MEAN CORPUSCULAR HGB CONC 31.7 g/dl (32.0-36.5); MEAN CORPUSCULAR VOLUME 96.1 fl (80.0-96.0); PLATELET COUNT, AUTOMATED 226 10^3/uL (150-450); RED BLOOD COUNT 2.33 10^6/uL (4.00-5.40); WHITE BLOOD COUNT 16.5 10^3/uL (4.0-10.0)
[2024-12-22 06:31] LABS: DIGOXIN LEVEL 0.8 NG/ML (0.8-2.0)
[2024-12-22 06:32] LABS: CREATININE FOR GFR 1.14 MG/DL (0.55-1.30); GLOMERULAR FILTRATION RATE 52.1 (>45); POTASSIUM SERUM 3.5 MMOL/L (3.5-5.1)
[2024-12-22 07:12] LABS: LYMPHOCYTES 5 % (16-44); MONOCYTES 7 % (0-5); NEUTROPHILS 85 % (28-66)
[2024-12-22 07:15] LABS: ANISOCYTOSIS 4+
[2024-12-22 07:16] LABS: POIKILOCYTOSIS 1+; SCHISTOCYTES 2+; SPHEROCYTES 3+
[2024-12-22 07:17] LABS: BURR CELLS 1+; CRENATED RBC 1+
[2024-12-22 07:19] LABS: PLATELET ESTIMATE NORMAL (NORMAL)
[2024-12-22] MEDS: SODIUM CHLORIDE 0.9% INJ 10 ML SYR IV SCH (08:37)
[2024-12-22] MEDS: FUROSEMIDE 40MG/4ML VIAL IV ONE (15:35)
[2024-12-23 03:22] VITALS: BP 146/72; TEMP 97.7; O2SAT 97
[2024-12-23 05:47] LABS: BASO # 0.1 10^3/uL (0.0-0.2); BASO % 0.4 % (0.0-1.0); EOS # 0.4 10^3/uL (0.0-0.5); EOS % 3.8 % (0.0-3.0); HEMATOCRIT 23.7 % (36.0-47.0); HEMOGLOBIN 7.3 g/dl (12.0-15.5); LYMPH # 1.3 10^3/uL (1.5-5.0); LYMPH % 11.4 % (24.0-44.0); MEAN CORPUSCULAR HEMOGLOBIN 29.3 pg (27.0-33.0); MEAN CORPUSCULAR HGB CONC 30.8 g/dl (32.0-36.5); MEAN CORPUSCULAR VOLUME 95.2 fl (80.0-96.0); MONO # 0.9 10^3/uL (0.0-0.8); MONO % 8.1 % (2.0-8.0); NEUTROPHILS # 8.4 10^3/uL (1.5-8.5); NEUTROPHILS % 75.5 % (36.0-66.0); PLATELET COUNT, AUTOMATED 264 10^3/uL (150-450); RED BLOOD COUNT 2.49 10^6/uL (4.00-5.40); WHITE BLOOD COUNT 11.2 10^3/uL (4.0-10.0)
[2024-12-23 06:20] LABS: CALCIUM LEVEL 8.2 MG/DL (8.3-10.6); CREATININE FOR GFR 1.17 MG/DL (0.55-1.30); GLOMERULAR FILTRATION RATE 50.5 (>45)
[2024-12-23 08:00] VITALS: BP 126/58; TEMP 97.9; O2SAT 95
[2024-12-23] MEDS: FUROSEMIDE 40MG/4ML VIAL IV ONE (08:26)
[2024-12-23] MEDS ORDERED: OMEPRAZOLE 20MG CAP PO SCH (09:00)
[2024-12-23] MEDS ORDERED: BISACODYL 10MG SUPP PR PRN (11:20)
[2024-12-23] MEDS ORDERED: MOM 30ML SUSPENSION UDC PO PRN (11:20)
[2024-12-23 12:00] VITALS: BP 118/54; TEMP 97.3; O2SAT 94
[2024-12-23] MEDS: ONDANSETRON 4MG 2ML VIAL IV SCH (12:19)
[2024-12-23 15:12] LABS: PROCALCITONIN 2.96 ng/ml
[2024-12-23 16:00] VITALS: BP 118/54; TEMP 98.1; O2SAT 96
[2024-12-23] MEDS: LevoFLOXacin 750 MG TABLET PO SCH (17:33)
[2024-12-23] MEDS: ALPRAZolam 0.5 MG TAB PO PRN (19:54)
[2024-12-24 06:54] VITALS: BP 137/74; TEMP 98.2; O2SAT 92
[2024-12-24 07:01] LABS: BASO % 0.2 % (0.0-1.0); EOS # 0.6 10^3/uL (0.0-0.5); EOS % 7.2 % (0.0-3.0); HEMATOCRIT 25.7 % (36.0-47.0); HEMOGLOBIN 8.1 g/dl (12.0-15.5); LYMPH % 12.4 % (24.0-44.0); MEAN CORPUSCULAR HEMOGLOBIN 29.9 pg (27.0-33.0); MEAN CORPUSCULAR HGB CONC 31.5 g/dl (32.0-36.5); MEAN CORPUSCULAR VOLUME 94.8 fl (80.0-96.0); MONO # 0.6 10^3/uL (0.0-0.8); MONO % 7.8 % (2.0-8.0); NEUTROPHILS # 5.7 10^3/uL (1.5-8.5); NEUTROPHILS % 70.7 % (36.0-66.0); PLATELET COUNT, AUTOMATED 277 10^3/uL (150-450); RED BLOOD COUNT 2.71 10^6/uL (4.00-5.40); WHITE BLOOD COUNT 8.1 10^3/uL (4.0-10.0)
[2024-12-24] MEDS ORDERED: SENOKOT S TAB PO PRN (07:10)
[2024-12-24] MEDS ORDERED: BISACODYL 5MG TAB PO PRN (07:10)
[2024-12-24] MEDS ORDERED: LACTULOSE 20GM/30ML SYRUP UDC PO PRN (07:10)
[2024-12-24] MEDS: LACTULOSE 20GM/30ML SYRUP UDC PO ONE (07:10)
[2024-12-24 07:53] LABS: CALCIUM LEVEL 8.7 MG/DL (8.3-10.6); CREATININE FOR GFR 1.06 MG/DL (0.55-1.30); GLOMERULAR FILTRATION RATE 56.9 (>45); POTASSIUM SERUM 4.1 MMOL/L (3.5-5.1)
[2024-12-24 07:56] VITALS: BP 137/74; TEMP 98.4; O2SAT 93
[2024-12-24] MEDS: SENOKOT S TAB PO SCH (07:58)
[2024-12-24] MEDS: BISACODYL 5MG TAB PO ONE (07:58)
[2024-12-24 11:58] VITALS: BP 124/59; TEMP 97.7; O2SAT 99
[2024-12-24] MEDS ORDERED: ONDANSETRON 4MG 2ML VIAL IV PRN (12:00)
[2024-12-24 16:00] VITALS: BP 128/60; TEMP 98.6; O2SAT 100
[2024-12-24 20:35] VITALS: BP 133/99; TEMP 98.4; O2SAT 96
[2024-12-24 23:43] VITALS: BP 139/69; TEMP 98.2; O2SAT 97
[2024-12-25 04:06] VITALS: BP 136/71; TEMP 98.2; O2SAT 97
[2024-12-25] MEDS: ALTEPLASE 2MG/2ML VIAL XX ONE (06:37)
[2024-12-25 08:00] VITALS: BP 136/66; TEMP 98.1; O2SAT 96
[2024-12-25 08:09] LABS: BASO % 0.4 % (0.0-1.0); EOS # 0.7 10^3/uL (0.0-0.5); EOS % 7.8 % (0.0-3.0); HEMATOCRIT 24.3 % (36.0-47.0); HEMOGLOBIN 7.7 g/dl (12.0-15.5); LYMPH % 11.3 % (24.0-44.0); MEAN CORPUSCULAR HEMOGLOBIN 30.3 pg (27.0-33.0); MEAN CORPUSCULAR HGB CONC 31.7 g/dl (32.0-36.5); MEAN CORPUSCULAR VOLUME 95.7 fl (80.0-96.0); MONO # 0.7 10^3/uL (0.0-0.8); MONO % 8.2 % (2.0-8.0); NEUTROPHILS # 5.9 10^3/uL (1.5-8.5); NEUTROPHILS % 68.8 % (36.0-66.0); PLATELET COUNT, AUTOMATED 245 10^3/uL (150-450); RED BLOOD COUNT 2.54 10^6/uL (4.00-5.40); WHITE BLOOD COUNT 8.5 10^3/uL (4.0-10.0)
[2024-12-25 08:25] LABS: BLOOD UREA NITROGEN 18 MG/DL (9-23); CALCIUM LEVEL 8.8 MG/DL (8.3-10.6); CARBON DIOXIDE LEVEL 30 MMOL/L (20-31); CHLORIDE LEVEL 104 MMOL/L (98-107); CREATININE FOR GFR 0.99 MG/DL (0.55-1.30); GLOMERULAR FILTRATION RATE > 60.0 (>45); GLUCOSE, FASTING 86 MG/DL (74-106); SODIUM LEVEL 141 MMOL/L (136-145)
[2024-12-25 09:29] VITALS: BP 136/66
[2024-12-25 12:00] VITALS: BP 138/65; TEMP 97.9; O2SAT 92
[2024-12-25] MEDS ORDERED: LEVO75TAB PO (14:32)
== END 2024-12-25 15:30 | disposition home or self-care (01) | DRG 871 ==
LOC: M ED 15:53 → M ED INP 21:07 → M MS5PR 22:45
PROVIDERS: ADMIT Internal Medicine Nephrology; ATTEND Student in an Organized Health Care Education/Training Program
DX: A41.9 Sepsis, unspecified organism (principal); J18.9 Pneumonia, unspecified organism; I50.33 Acute on chronic diastolic (congestive) heart failure; C34.12 Malignant neoplasm of upper lobe, left bronchus or lung; I13.0 Hypertensive heart and chronic kidney disease with heart failure and stage 1 through stage 4 chronic kidney disease, or unspecified chronic kidney disease; E87.3 Alkalosis; R09.02 Hypoxemia; D64.9 Anemia, unspecified; N18.30 Chronic kidney disease, stage 3 unspecified; E83.42 Hypomagnesemia; E87.6 Hypokalemia; G89.29 Other chronic pain; F03.90 Unspecified dementia, unspecified severity, without behavioral disturbance, psychotic disturbance, mood disturbance, and anxiety; R94.31 Abnormal electrocardiogram [ECG] [EKG]; I48.91 Unspecified atrial fibrillation; K44.9 Diaphragmatic hernia without obstruction or gangrene; E78.00 Pure hypercholesterolemia, unspecified; K21.9 Gastro-esophageal reflux disease without esophagitis; F41.9 Anxiety disorder, unspecified; F32.A Depression, unspecified; K59.00 Constipation, unspecified; R73.03 Prediabetes; F42.9 Obsessive-compulsive disorder, unspecified; Z79.01 Long term (current) use of anticoagulants; Z79.899 Other long term (current) drug therapy; Z90.2 Acquired absence of lung [part of]; Z79.891 Long term (current) use of opiate analgesic

== ENCOUNTER → 2025-01-23 | Outpatient (CLI) | payer MEDICARE, OTHER ==
[~2025-01-23] VITALS: Ht 162.6 cm; Wt 68.6 kg
[~2025-01-23] MED LIST changes: +PANT40TA29 PO; -PREG25CA PO; +PREG25CA63 PO; +TOPI-256 PO; -TOPI25TA10 PO
[2025-01-23 13:12] VITALS: BP 118/67; O2SAT 97
== END ==
LOC: M PAL 12:57
PROVIDERS: ATTEND Physician Assistant
DX: Z51.5 Encounter for palliative care (principal); C34.90 Malignant neoplasm of unspecified part of unspecified bronchus or lung; Z90.2 Acquired absence of lung [part of]; Z92.21 Personal history of antineoplastic chemotherapy; Z92.3 Personal history of irradiation; Z79.891 Long term (current) use of opiate analgesic; Z79.899 Other long term (current) drug therapy; Z79.02 Long term (current) use of antithrombotics/antiplatelets

== ENCOUNTER → 2025-03-25 | Outpatient (CLI) | payer MEDICARE, OTHER ==
[~2025-03-25] VITALS: Ht 162.6 cm; Wt 71.1 kg
[~2025-03-25] MED LIST changes: +PRED20TA PO
[2025-03-25 13:45] VITALS: BP 118/68; O2SAT 98
== END ==
LOC: M PAL 13:24
PROVIDERS: ATTEND Physician Assistant
DX: Z51.5 Encounter for palliative care (principal); C34.90 Malignant neoplasm of unspecified part of unspecified bronchus or lung; Z90.2 Acquired absence of lung [part of]; Z92.21 Personal history of antineoplastic chemotherapy; Z92.3 Personal history of irradiation; Z79.891 Long term (current) use of opiate analgesic; Z79.899 Other long term (current) drug therapy; Z79.02 Long term (current) use of antithrombotics/antiplatelets; Z79.83 Long term (current) use of bisphosphonates

== ENCOUNTER 2025-03-27 15:30 | Emergency (ER) | payer MEDICARE, OTHER ==
[~2025-03-27] VITALS: Ht 162.6 cm; Wt 70.9 kg
[~2025-03-27 15:30] MED LIST changes: -PRED20TA PO
[2025-03-28] MEDS ORDERED: PRED20TA PO (00:04)
[2025-03-28] MEDS: predniSONE 20 MG TAB PO ONE (00:09)
[2025-03-28 00:18] VITALS: BP 147/82; TEMP 97.6; O2SAT 98
[2025-04-04] MEDS ORDERED: OXYC-1 PO (14:06)
== END 2025-03-28 00:15 | disposition home or self-care (01) ==
LOC: M ED 15:30
DX: M10.071 Idiopathic gout, right ankle and foot (principal); C34.90 Malignant neoplasm of unspecified part of unspecified bronchus or lung; I10 Essential (primary) hypertension; Z79.01 Long term (current) use of anticoagulants; Z79.899 Other long term (current) drug therapy

== ENCOUNTER → 2025-04-16 | Outpatient (REF) | payer MEDICARE, OTHER ==
[~2025-04-16] MED LIST changes: +OXYC-1 PO; +PRED20TA PO
[2025-04-16 15:18] LABS: BASO # 0.0 10^3/uL (0.0-0.2); BASO % 0.6 % (0.0-1.0); EOS # 0.2 10^3/uL (0.0-0.5); EOS % 3.4 % (0.0-3.0); LYMPH # 1.0 10^3/uL (1.5-5.0); LYMPH % 14.1 % (24.0-44.0); MONO # 0.7 10^3/uL (0.0-0.8); MONO % 9.7 % (2.0-8.0); NEUTROPHILS # 4.8 10^3/uL (1.5-8.5); NEUTROPHILS % 71.9 % (36.0-66.0); PLATELET COUNT, AUTOMATED 187 10^3/uL (150-450)
[2025-04-16 15:47] LABS: IRON (FE) 138.0 UG/DL (50-170)
[2025-04-16 15:48] LABS: PERCENT SATURATION 44.5 % (13.2-45.0)
[2025-04-16 15:54] LABS: ALT/SGPT 40.0 U/L (7.0-40); AST/SGOT 39.0 U/L (<34); CALCIUM LEVEL 9.2 MG/DL (8.3-10.6); CARBON DIOXIDE LEVEL 30.0 MMOL/L (20-31); CHLORIDE LEVEL 101.0 MMOL/L (98-107); CREATININE FOR GFR 1.55 MG/DL (0.55-1.30); GLOMERULAR FILTRATION RATE 36.0 (>45); POTASSIUM SERUM 3.7 MMOL/L (3.5-5.1); SODIUM LEVEL 145.0 MMOL/L (136-145)
== END ==
LOC: M LAB REF 15:11
PROVIDERS: ATTEND Internal Medicine Hematology & Oncology
DX: D64.9 Anemia, unspecified (principal); C34.92 Malignant neoplasm of unspecified part of left bronchus or lung

== ENCOUNTER → 2025-04-17 | Outpatient (CLI) | payer MEDICARE, OTHER ==
[~2025-04-17] MED LIST changes: +ISOVUE-370 76% 100 ML VIAL As Ordered ONE
== END ==
LOC: M RAD 10:59
PROVIDERS: ATTEND Internal Medicine Hematology & Oncology
DX: C34.92 Malignant neoplasm of unspecified part of left bronchus or lung (principal)
CPT/HCPCS: 71260; 74177; Q9967

== ENCOUNTER → 2025-04-25 | Outpatient (CLI) | payer MEDICARE, OTHER ==
[~2025-04-25] VITALS: Ht 162.6 cm; Wt 69.5 kg
[~2025-04-25] MED LIST changes: -ISOVUE-370 76% 100 ML VIAL As Ordered ONE
[2025-04-25 14:53] VITALS: BP 126/73; O2SAT 96
== END ==
LOC: M PAL 15:09
PROVIDERS: ATTEND Physician Assistant
DX: Z51.5 Encounter for palliative care (principal); C34.90 Malignant neoplasm of unspecified part of unspecified bronchus or lung; Z92.21 Personal history of antineoplastic chemotherapy; Z92.3 Personal history of irradiation; Z90.2 Acquired absence of lung [part of]; Z79.891 Long term (current) use of opiate analgesic; Z79.899 Other long term (current) drug therapy

== ENCOUNTER → 2025-05-09 | Outpatient (REF) | payer MEDICARE, OTHER ==
[2025-05-09 11:23] LABS: BASO # 0.0 10^3/uL (0.0-0.2); BASO % 0.5 % (0.0-1.0); EOS # 0.5 10^3/uL (0.0-0.5); EOS % 7.0 % (0.0-3.0); LYMPH # 1.0 10^3/uL (1.5-5.0); LYMPH % 15.6 % (24.0-44.0); MONO # 0.6 10^3/uL (0.0-0.8); MONO % 9.8 % (2.0-8.0); NEUTROPHILS # 4.4 10^3/uL (1.5-8.5); NEUTROPHILS % 66.5 % (36.0-66.0); PLATELET COUNT, AUTOMATED 176 10^3/uL (150-450)
[2025-05-09 12:19] LABS: ALT/SGPT 31.0 U/L (7.0-40); AST/SGOT 41.0 U/L (<34); CALCIUM LEVEL 9.6 MG/DL (8.3-10.6); CARBON DIOXIDE LEVEL 31.0 MMOL/L (20-31); CHLORIDE LEVEL 101.0 MMOL/L (98-107); CREATININE FOR GFR 1.51 MG/DL (0.55-1.30); GLOMERULAR FILTRATION RATE 37.2 (>45); IRON (FE) 111.0 UG/DL (50-170); PERCENT SATURATION 35.9 % (13.2-45.0); POTASSIUM SERUM 3.2 MMOL/L (3.5-5.1); SODIUM LEVEL 145.0 MMOL/L (136-145)
== END ==
LOC: M LAB REF 10:07
PROVIDERS: ATTEND Internal Medicine Hematology & Oncology
DX: C34.92 Malignant neoplasm of unspecified part of left bronchus or lung (principal); D64.9 Anemia, unspecified

== ENCOUNTER 2025-05-29 16:23 | Inpatient (IN) | payer MEDICARE, OTHER ==
[~2025-05-29] VITALS: Ht 167.6 cm; Wt 69.7 kg
[2025-05-29] MEDS ORDERED: HEPARIN LOCK FLUSH 100 UNITS/ML 3 ML SYRINGE IV PRN (16:50)
[2025-05-29] MEDS ORDERED: SODIUM CHLORIDE 0.9% INJ 10 ML SYR IV PRN (16:50)
[2025-05-29] MEDS: ACETAMINOPHEN *IV* 1,000 MG in IV 1 EA IV ONE ×2 (17:10→23:28)
[2025-05-29 17:15] LABS: BASO # 0.0 10^3/uL (0.0-0.2); BASO % 0.2 % (0.0-1.0); EOS # 0.2 10^3/uL (0.0-0.5); EOS % 1.3 % (0.0-3.0); LYMPH # 0.4 10^3/uL (1.5-5.0); LYMPH % 2.6 % (24.0-44.0); MONO # 0.9 10^3/uL (0.0-0.8); MONO % 5.5 % (2.0-8.0); NEUTROPHILS # 15.1 10^3/uL (1.5-8.5); NEUTROPHILS % 89.7 % (36.0-66.0); PLATELET COUNT, AUTOMATED 181 10^3/uL (150-450)
[2025-05-29 17:33] LABS: VENOUS BASE EXCESS 4.6 (-2.0-2.0); VENOUS HCO3 30.5 MMOL/L (23.0-27.0); VENOUS O2 SATURATION 72.7 % (60.0-80.0); VENOUS PARTIAL PRESSURE CO2 51.5 mmHg (38.0-50.0); VENOUS PARTIAL PRESSURE O2 41.9 mmHg (30.0-50.0); VENOUS PH 7.391 UNITS (7.330-7.430); VENOUS STANDARD HCO3 28.1 MMOL/L; VENOUS TOTAL CO2 32.1 MMOL/L (24.0-28.0)
[2025-05-29] MEDS: CEFEPIME HCL 2 GM in DEXTROSE 5% (D5W) ADV/MINI-BAG 50 ML IV ONE (17:44)
[2025-05-29] MEDS: [UNRECOGNIZED DRUG - OTHER] IV ONE (17:44)
[2025-05-29] MEDS: NS 0.9% IV ONE (17:44)
[2025-05-29 17:46] LABS: ALT/SGPT 37.0 U/L (7.0-40); AST/SGOT 37.0 U/L (<34); CALCIUM LEVEL 10.0 MG/DL (8.3-10.6); CARBON DIOXIDE LEVEL 31.0 MMOL/L (20-31); CHLORIDE LEVEL 97.0 MMOL/L (98-107); CREATININE FOR GFR 2.13 MG/DL (0.55-1.30); GLOMERULAR FILTRATION RATE 24.5 (>39); MAGNESIUM LEVEL 2.8 MG/DL (1.8-2.4); POTASSIUM SERUM 3.6 MMOL/L (3.5-5.1); SODIUM LEVEL 141.0 MMOL/L (136-145)
[2025-05-29 18:01] LABS: KETONE, URINE AUTO RFX NEGATIVE (NEGATIVE); LEUKOCYTE ESTERASE UR AUTO RFX NEGATIVE (NEGATIVE); NITRITE, URINE AUTO RFX NEGATIVE (NEGATIVE); RBC, URINE AUTO RFX 2 /HPF (0-3); SQUAM EPITHELIAL CELL UR AURFX 2 /HPF (0-6); WBC, URINE AUTO RFX 0 /HPF (0-3)
[2025-05-29] MEDS: VANCOMYCIN HCL 1,250 MG, VIAL MATE ADAPTER 1 EACH in NS 250 ML IV ONE (18:38)
[2025-05-29] MEDS ORDERED: TOPI-21 PO (19:29)
[2025-05-29] MEDS ORDERED: CEFA500C2 PO (19:30)
[2025-05-29] MEDS ORDERED: ALLO100T PO (19:30)
[2025-05-29] MEDS ORDERED: HOME MED LIST COMPLETE! XX SCH (19:35)
[2025-05-29] MEDS: NS 500 ML IV ONE (19:43)
[2025-05-29] MEDS: NOREPINEPHRINE 4MG IN D5 250ML 4 MG in IV 1 EA IV SCH (20:48)
[2025-05-29] MEDS ORDERED: SENNA 8.6 MG TAB PO PRN (23:15)
[2025-05-29] MEDS: NS (Normal Saline) 0.9% 1,000 ML IV SCH (23:28)
[2025-05-29] MEDS: SIMVASTATIN 40 MG TAB PO SCH (23:35)
[2025-05-29] MEDS: TOPIRAMATE 25 MG TAB PO SCH (23:36)
[2025-05-29] MEDS: APIXABAN 5 MG TAB PO SCH (23:36)
[2025-05-29] MEDS: PANTOPRAZOLE 40MG TAB PO SCH (23:36)
[2025-05-30] VITALS (37 sets, daily range): BP systolic 84–169; BP diastolic 46–69; TEMP 97.2–99.5; O2SAT 92–98
[2025-05-30] MEDS ORDERED: ONDANSETRON 4MG 2ML VIAL IV PRN (00:55)
[2025-05-30] MEDS: DOXYCYCLINE HYCLATE 100 MG in DEXTROSE 5% (D5W) MINI-BAG PLU 100 ML IV SCH (01:07)
[2025-05-30] MEDS ORDERED: traZODone 100 MG TAB PO PRN (02:25)
[2025-05-30 04:36] LABS: PLATELET COUNT, AUTOMATED 146 10^3/uL (150-450)
[2025-05-30 05:16] LABS: CALCIUM LEVEL 8.4 MG/DL (8.3-10.6); CARBON DIOXIDE LEVEL 27.0 MMOL/L (20-31); CHLORIDE LEVEL 109.0 MMOL/L (98-107); CREATININE FOR GFR 1.44 MG/DL (0.55-1.30); GLOMERULAR FILTRATION RATE 39.1 (>39); MAGNESIUM LEVEL 2.5 MG/DL (1.8-2.4); POTASSIUM SERUM 3.4 MMOL/L (3.5-5.1); SODIUM LEVEL 147.0 MMOL/L (136-145)
[2025-05-30] MEDS: CEFEPIME HCL 1 GM in DEXTROSE 5% (D5W) ADV/MINI-BAG 50 ML IV SCH (05:18)
[2025-05-30] MEDS: POTASSIUM CHLORIDE 10MEQ SR TABLET PO ONE (05:57)
[2025-05-30] MEDS: ALBUTEROL 90 MCG/ACT 8 GM HFA INHALER INH PRN (07:39)
[2025-05-30] MEDS ORDERED: HEPARIN LOCK FLUSH 100 UNITS/ML 3 ML SYRINGE IV SCH (09:00)
[2025-05-30] MEDS ORDERED: SODIUM CHLORIDE 0.9% INJ 10 ML SYR IV SCH (09:00)
[2025-05-30 10:56] LABS: BASO # 0.0 10^3/uL (0.0-0.2); BASO % 0.2 % (0.0-1.0); EOS # 0.5 10^3/uL (0.0-0.5); EOS % 4.4 % (0.0-3.0); LYMPH # 0.7 10^3/uL (1.5-5.0); LYMPH % 5.6 % (24.0-44.0); MONO # 0.8 10^3/uL (0.0-0.8); MONO % 7.2 % (2.0-8.0); NEUTROPHILS # 9.5 10^3/uL (1.5-8.5); NEUTROPHILS % 82.3 % (36.0-66.0); PLATELET COUNT, AUTOMATED 147 10^3/uL (150-450)
[2025-05-30] MEDS: CEFEPIME HCL 2 GM in DEXTROSE 5% (D5W) ADV/MINI-BAG 50 ML IV SCH (16:09)
[2025-05-30 19:42] LABS: BASO # 0.0 10^3/uL (0.0-0.2); BASO % 0.2 % (0.0-1.0); EOS # 0.5 10^3/uL (0.0-0.5); EOS % 3.9 % (0.0-3.0); LYMPH # 0.5 10^3/uL (1.5-5.0); LYMPH % 4.6 % (24.0-44.0); MONO # 0.7 10^3/uL (0.0-0.8); MONO % 6.4 % (2.0-8.0); NEUTROPHILS # 9.6 10^3/uL (1.5-8.5); NEUTROPHILS % 84.5 % (36.0-66.0); PLATELET COUNT, AUTOMATED 148 10^3/uL (150-450)
[2025-05-30] MEDS: DOXYCYCLINE HYCLATE 100 MG TABLET PO SCH (20:28)
[2025-05-30] MEDS: ALPRAZolam 0.5 MG TAB PO PRN (22:58)
[2025-05-31 05:29] VITALS: BP 133/78; TEMP 98.1; O2SAT 96
[2025-05-31 06:44] LABS: BASO # 0.0 10^3/uL (0.0-0.2); BASO % 0.2 % (0.0-1.0); EOS # 0.7 10^3/uL (0.0-0.5); EOS % 5.4 % (0.0-3.0); LYMPH # 0.6 10^3/uL (1.5-5.0); LYMPH % 4.8 % (24.0-44.0); MONO # 0.9 10^3/uL (0.0-0.8); MONO % 7.6 % (2.0-8.0); NEUTROPHILS # 10.0 10^3/uL (1.5-8.5); NEUTROPHILS % 81.4 % (36.0-66.0); PLATELET COUNT, AUTOMATED 146 10^3/uL (150-450)
[2025-05-31 07:55] VITALS: BP 133/75; TEMP 98.5; O2SAT 95
[2025-05-31] MEDS: ALPRAZolam 0.5 MG TAB PO ONE (10:54)
[2025-05-31 12:02] VITALS: BP 117/67; TEMP 98.1; O2SAT 90
[2025-05-31 15:30] VITALS: BP 141/84; TEMP 99.2; O2SAT 98
[2025-05-31] MEDS: ALBUTEROL SULFATE 2.5 MG/0.5 ML INH CONCENTRATE NEB SOLN NEB PRN (16:07)
[2025-05-31 16:31] LABS: BASO # 0.0 10^3/uL (0.0-0.2); BASO % 0.3 % (0.0-1.0); EOS # 0.7 10^3/uL (0.0-0.5); EOS % 6.9 % (0.0-3.0); LYMPH # 0.5 10^3/uL (1.5-5.0); LYMPH % 5.6 % (24.0-44.0); MONO # 0.7 10^3/uL (0.0-0.8); MONO % 7.1 % (2.0-8.0); NEUTROPHILS # 7.6 10^3/uL (1.5-8.5); NEUTROPHILS % 79.7 % (36.0-66.0); PLATELET COUNT, AUTOMATED 141 10^3/uL (150-450)
[2025-05-31 16:55] LABS: CALCIUM LEVEL 8.9 MG/DL (8.3-10.6); CARBON DIOXIDE LEVEL 24.0 MMOL/L (20-31); CHLORIDE LEVEL 112.0 MMOL/L (98-107); CREATININE FOR GFR 0.95 MG/DL (0.55-1.30); GLOMERULAR FILTRATION RATE 64.5 (>39); MAGNESIUM LEVEL 2.0 MG/DL (1.8-2.4); POTASSIUM SERUM 3.7 MMOL/L (3.5-5.1); SODIUM LEVEL 146.0 MMOL/L (136-145)
[2025-05-31 21:48] VITALS: BP 125/75; TEMP 98.8; O2SAT 96
[2025-06-01 03:10] VITALS: O2SAT 95
[2025-06-01 03:20] VITALS: BP 128/76; TEMP 98.4; O2SAT 96
[2025-06-01 06:14] LABS: PLATELET COUNT, AUTOMATED 148 10^3/uL (150-450)
[2025-06-01 06:43] LABS: CALCIUM LEVEL 9.3 MG/DL (8.3-10.6); CARBON DIOXIDE LEVEL 24.0 MMOL/L (20-31); CHLORIDE LEVEL 110.0 MMOL/L (98-107); CREATININE FOR GFR 0.91 MG/DL (0.55-1.30); GLOMERULAR FILTRATION RATE 67.9 (>39); POTASSIUM SERUM 3.8 MMOL/L (3.5-5.1); SODIUM LEVEL 140.0 MMOL/L (136-145)
[2025-06-01 08:39] VITALS: BP 127/75
[2025-06-01] MEDS ORDERED: TORS10TA3 PO (09:39)
[2025-06-01] MEDS ORDERED: CEFD1CAP9 PO (09:39)
[2025-06-01] MEDS ORDERED: DOXY100C3 PO (09:39)
== END 2025-06-01 13:37 | disposition home or self-care (01) | DRG 871 ==
LOC: EDBD 16:23 → M ED 16:23 → M ED INP 05-30 00:21 → M ICU 05-30 01:24 → M MSPAV 05-30 23:53
PROVIDERS: ADMIT Student in an Organized Health Care Education/Training Program; ATTEND Internal Medicine
DX: A41.9 Sepsis, unspecified organism (principal); J15.69 Pneumonia due to other Gram-negative bacteria; N17.0 Acute kidney failure with tubular necrosis; R65.21 Severe sepsis with septic shock; I48.91 Unspecified atrial fibrillation; I12.9 Hypertensive chronic kidney disease with stage 1 through stage 4 chronic kidney disease, or unspecified chronic kidney disease; R73.03 Prediabetes; M10.9 Gout, unspecified; J40 Bronchitis, not specified as acute or chronic; E78.5 Hyperlipidemia, unspecified; R19.7 Diarrhea, unspecified; R11.0 Nausea; K21.9 Gastro-esophageal reflux disease without esophagitis; G89.29 Other chronic pain; N18.30 Chronic kidney disease, stage 3 unspecified; D64.9 Anemia, unspecified; Z90.79 Acquired absence of other genital organ(s); Z90.2 Acquired absence of lung [part of]; Z85.118 Personal history of other malignant neoplasm of bronchus and lung; Z79.01 Long term (current) use of anticoagulants; Z79.899 Other long term (current) drug therapy

== ENCOUNTER → 2025-06-25 | Outpatient (REF) | payer MEDICARE, OTHER ==
[~2025-06-25] MED LIST changes: +ALLO100T PO; +CEFA500C2 PO; +CEFD1CAP9 PO; +DOXY100C3 PO; +TOPI-21 PO; +TORS10TA3 PO
[2025-06-25 15:23] LABS: BASO # 0.0 10^3/uL (0.0-0.2); BASO % 0.3 % (0.0-1.0); EOS # 0.4 10^3/uL (0.0-0.5); EOS % 4.2 % (0.0-3.0); LYMPH # 1.0 10^3/uL (1.5-5.0); LYMPH % 9.5 % (24.0-44.0); MONO # 0.7 10^3/uL (0.0-0.8); MONO % 6.8 % (2.0-8.0); NEUTROPHILS # 7.9 10^3/uL (1.5-8.5); NEUTROPHILS % 78.8 % (36.0-66.0); PLATELET COUNT, AUTOMATED 175 10^3/uL (150-450)
[2025-06-25 15:52] LABS: ALT/SGPT 20 U/L (7.0-40); AST/SGOT 27 U/L (<34); C REACTIVE PROTEIN QUANTITATIV 1.26 MG/DL (<1.0); CALCIUM LEVEL 9.1 MG/DL (8.3-10.6); CARBON DIOXIDE LEVEL 26 MMOL/L (20-31); CHLORIDE LEVEL 108 MMOL/L (98-107); CREATININE FOR GFR 1.22 MG/DL (0.55-1.30); GLOMERULAR FILTRATION RATE 47.7 (>39); POTASSIUM SERUM 3.8 MMOL/L (3.5-5.1); SODIUM LEVEL 143 MMOL/L (136-145)
== END ==
LOC: M LAB REF 15:00
PROVIDERS: ATTEND Internal Medicine
DX: N17.9 Acute kidney failure, unspecified (principal)

== ENCOUNTER 2025-06-26 09:26 | Inpatient (IN) | payer MEDICARE, OTHER ==
[~2025-06-26] VITALS: Ht 162.6 cm; Wt 68.4 kg
[2025-06-26] VITALS (17 sets, daily range): BP systolic 89–125; BP diastolic 45–71; TEMP 98.6–99.7; O2SAT 81–98
[2025-06-26 09:58] LABS: VENOUS BASE EXCESS -3.0 (-2.0-2.0); VENOUS HCO3 21.7 MMOL/L (23.0-27.0); VENOUS O2 SATURATION 89.5 % (60.0-80.0); VENOUS PARTIAL PRESSURE CO2 37.5 mmHg (38.0-50.0); VENOUS PARTIAL PRESSURE O2 59.1 mmHg (30.0-50.0); VENOUS PH 7.381 UNITS (7.330-7.430); VENOUS STANDARD HCO3 21.9 MMOL/L; VENOUS TOTAL CO2 22.9 MMOL/L (24.0-28.0)
[2025-06-26 10:03] LABS: BASO # 0.0 10^3/uL (0.0-0.2); BASO % 0.2 % (0.0-1.0); EOS # 0.2 10^3/uL (0.0-0.5); EOS % 1.7 % (0.0-3.0); LYMPH # 0.4 10^3/uL (1.5-5.0); LYMPH % 4.4 % (24.0-44.0); MONO # 0.6 10^3/uL (0.0-0.8); MONO % 7.5 % (2.0-8.0); NEUTROPHILS # 7.4 10^3/uL (1.5-8.5); NEUTROPHILS % 85.9 % (36.0-66.0); PLATELET COUNT, AUTOMATED 149 10^3/uL (150-450)
[2025-06-26 10:24] LABS: C REACTIVE PROTEIN QUANTITATIV 3.55 MG/DL (<1.0)
[2025-06-26 10:33] LABS: INR 1.54
[2025-06-26] MEDS ORDERED: OXYC-1 PO (10:52)
[2025-06-26] MEDS ORDERED: SODIUM CHLORIDE 0.9% INJ 10 ML SYR IV PRN (10:55)
[2025-06-26] MEDS ORDERED: HOME MED LIST COMPLETE! XX SCH (10:55)
[2025-06-26] MEDS ORDERED: HEPARIN LOCK FLUSH 100 UNITS/ML 3 ML SYRINGE IV PRN (10:55)
[2025-06-26 10:59] LABS: ALT/SGPT 20.0 U/L (7.0-40); AST/SGOT 24.0 U/L (<34); CALCIUM LEVEL 8.7 MG/DL (8.3-10.6); CARBON DIOXIDE LEVEL 23.0 MMOL/L (20-31); CHLORIDE LEVEL 107.0 MMOL/L (98-107); CREATININE FOR GFR 1.26 MG/DL (0.55-1.30); GLOMERULAR FILTRATION RATE 45.9 (>39); POTASSIUM SERUM 3.4 MMOL/L (3.5-5.1); SODIUM LEVEL 141.0 MMOL/L (136-145)
[2025-06-26] MEDS: NS 0.9% IV ONE (11:15)
[2025-06-26] MEDS: ACETAMINOPHEN 500 MG TAB PO ONE (11:15)
[2025-06-26] MEDS: cefTRIAXone SOD 2 GM in DEXTROSE 5% (D5W) ADV/MINI-BAG 50 ML IV ONE (11:15)
[2025-06-26] MEDS: [UNRECOGNIZED DRUG - OTHER] IV ONE (11:15)
[2025-06-26 12:08] LABS: APPEARANCE, URINE HAZY (CLEAR); BACTERIA, URINE AUTO NEGATIVE (NEGATIVE); BILIRUBIN, URINE AUTO NEGATIVE (NEGATIVE); BLOOD, URINE BLOOD 2+ (NEGATIVE); GLUCOSE, URINE (UA) AUTO NEGATIVE (NEGATIVE); KETONE, URINE AUTO NEGATIVE (NEGATIVE); LEUKOCYTE ESTERASE, URINE AUTO 3+ (NEGATIVE); NITRITE, URINE AUTO NEGATIVE (NEGATIVE); PROTEIN, URINE AUTO 1+ mg/dL (NEGATIVE); RBC, URINE AUTO 8 /HPF (0-3); SPECIFIC GRAVITY URINE AUTO 1.009 (1.002-1.035); SQUAMOUS EPITHELIAL CELL UR AU 0 /HPF (0-6); UROBILINOGEN, URINE AUTO 0.2 mg/dL (0.0-2.0); WBC, URINE AUTO TNTC /HPF (0-3); YEAST LIKE CELL URINE AUTO SMALL
[2025-06-26] MEDS ORDERED: ISOVUE-370 76% 100 ML VIAL As Ordered ONE (12:29)
[2025-06-26] MEDS: DIGOXIN INJ 0.5 MG/2 ML AMP IV ONE (13:05)
[2025-06-26 14:26] LABS: CORTISOL AM 32.2 UG/DL (4.3-22.4)
[2025-06-26] MEDS: PIPERACILLIN/TAZOBACTAM SOD 3.375 GM in DEXTROSE 5% (D5W) ADV/MINI-BAG 50 ML IV SCH (14:34)
[2025-06-26] MEDS: PANTOPRAZOLE 40MG VIAL IV SCH (14:34)
[2025-06-26] MEDS: LR 1,000 ML IV SCH (14:34)
[2025-06-26] MEDS: VANCOMYCIN HCL 1,500 MG, VIAL MATE ADAPTER 1 EACH in NS 500 ML IV ONE (15:40)
[2025-06-26] MEDS ORDERED: ALBUTEROL 90 MCG/ACT 8 GM HFA INHALER INH SCH (16:00)
[2025-06-26] MEDS ORDERED: ALBUTEROL 90 MCG/ACT 8 GM HFA INHALER INH PRN (16:40)
[2025-06-26] MEDS ORDERED: SENNA 8.6 MG TAB PO PRN (19:05)
[2025-06-26] MEDS: APIXABAN 5 MG TAB PO SCH (21:24)
[2025-06-27] VITALS (9 sets, daily range): BP systolic 102–143; BP diastolic 55–86; TEMP 97.2–101.6; O2SAT 96–98
[2025-06-27] MEDS ORDERED: ACETAMINOPHEN 325 MG TAB As Ordered ONE (03:10)
[2025-06-27] MEDS: ACETAMINOPHEN 325 MG TAB PO PRN (03:51)
[2025-06-27 06:54] LABS: BASO # 0.0 10^3/uL (0.0-0.2); BASO % 0.3 % (0.0-1.0); EOS # 0.3 10^3/uL (0.0-0.5); EOS % 2.8 % (0.0-3.0); LYMPH # 1.1 10^3/uL (1.5-5.0); LYMPH % 9.8 % (24.0-44.0); MONO # 1.2 10^3/uL (0.0-0.8); MONO % 10.7 % (2.0-8.0); NEUTROPHILS # 8.2 10^3/uL (1.5-8.5); NEUTROPHILS % 75.9 % (36.0-66.0); PLATELET COUNT, AUTOMATED 143 10^3/uL (150-450)
[2025-06-27 07:18] LABS: VANCOMYCIN RANDOM 12.9 UG/ML
[2025-06-27] MEDS: NYSTATIN 100,000 UNITS/GM TOPICAL PWD 15 GM TOP SCH (08:12)
[2025-06-27 08:20] LABS: CHLORIDE LEVEL 113.0 MMOL/L (98-107); POTASSIUM SERUM 3.7 MMOL/L (3.5-5.1); SODIUM LEVEL 146.0 MMOL/L (136-145)
[2025-06-27 08:23] LABS: CARBON DIOXIDE LEVEL 23.0 MMOL/L (20-31)
[2025-06-27 08:33] LABS: ALT/SGPT 39.0 U/L (7.0-40); AST/SGOT 39.0 U/L (<34); CALCIUM LEVEL 8.5 MG/DL (8.3-10.6); CREATININE FOR GFR 1.16 MG/DL (0.55-1.30); GLOMERULAR FILTRATION RATE 50.7 (>39)
[2025-06-27] MEDS: SODIUM CHLORIDE 0.9% INJ 10 ML SYR IV SCH (09:00)
[2025-06-27] MEDS: HEPARIN LOCK FLUSH 100 UNITS/ML 3 ML SYRINGE IV SCH (09:00)
[2025-06-27] MEDS: ALPRAZolam 0.5 MG TAB PO PRN (09:58)
[2025-06-27] MEDS ORDERED: VANCOMYCIN HCL 1,000 MG, VIAL MATE ADAPTER 1 EACH in NS 250 ML IV SCH (10:00)
[2025-06-27] MEDS: POTASSIUM CHLORIDE 10MEQ SR TABLET PO ONE (12:27)
[2025-06-27] MEDS: cefTRIAXone SOD 2 GM in DEXTROSE 5% (D5W) ADV/MINI-BAG 50 ML IV SCH (17:37)
[2025-06-28 04:11] VITALS: BP 160/72; TEMP 98.1; O2SAT 98
[2025-06-28 04:23] LABS: PLATELET COUNT, AUTOMATED 152 10^3/uL (150-450)
[2025-06-28 04:50] LABS: CALCIUM LEVEL 8.6 MG/DL (8.3-10.6); CARBON DIOXIDE LEVEL 24.0 MMOL/L (20-31); CHLORIDE LEVEL 114.0 MMOL/L (98-107); CREATININE FOR GFR 1.04 MG/DL (0.55-1.30); GLOMERULAR FILTRATION RATE 57.8 (>39); POTASSIUM SERUM 4.0 MMOL/L (3.5-5.1); SODIUM LEVEL 147.0 MMOL/L (136-145)
[2025-06-28 08:00] VITALS: BP 145/65; TEMP 98.6; O2SAT 97
[2025-06-28] MEDS ORDERED: ONDANSETRON 4MG 2ML VIAL As Ordered ONE (09:38)
[2025-06-28] MEDS: ONDANSETRON 4MG 2ML VIAL IV SCH (10:00)
[2025-06-28 12:15] VITALS: BP 153/70; TEMP 101.1; O2SAT 97
[2025-06-28] MEDS ORDERED: LEVO1TAB40 PO (12:29)
[2025-06-28 12:41] VITALS: TEMP 98.8
[2025-06-28] MEDS: HEPARIN LOCK FLUSH 100 UNITS/ML 3 ML SYRINGE IV PRN (14:06)
[2025-06-28 15:07] VITALS: BP 153/70; TEMP 98.8; O2SAT 97
[2025-07-01 18:27] LABS: FUNGITELL, SERUM < 31 pg/mL (<60)
== END 2025-06-28 15:00 | disposition home or self-care (01) | DRG 871 ==
LOC: EDBD 09:26 → M ED 09:26 → M ED INP 12:36 → M ICU 15:04
PROVIDERS: ADMIT Internal Medicine; ATTEND Student in an Organized Health Care Education/Training Program
DX: A41.51 Sepsis due to Escherichia coli [E. coli] (principal); G93.41 Metabolic encephalopathy; N39.0 Urinary tract infection, site not specified; C34.12 Malignant neoplasm of upper lobe, left bronchus or lung; I48.20 Chronic atrial fibrillation, unspecified; D64.9 Anemia, unspecified; I12.9 Hypertensive chronic kidney disease with stage 1 through stage 4 chronic kidney disease, or unspecified chronic kidney disease; R73.03 Prediabetes; E78.5 Hyperlipidemia, unspecified; K21.9 Gastro-esophageal reflux disease without esophagitis; G89.29 Other chronic pain; N18.30 Chronic kidney disease, stage 3 unspecified; Z90.79 Acquired absence of other genital organ(s); Z90.2 Acquired absence of lung [part of]; Z79.01 Long term (current) use of anticoagulants; Z79.899 Other long term (current) drug therapy; Z79.891 Long term (current) use of opiate analgesic

== ENCOUNTER → 2025-07-10 | Outpatient (CLI) | payer MEDICARE, OTHER ==
[~2025-07-10] VITALS: Ht 162.6 cm; Wt 64.6 kg
[~2025-07-10] MED LIST changes: +LEVO1TAB40 PO
[2025-07-10 14:15] VITALS: BP 154/95; O2SAT 94
== END ==
LOC: M PAL 14:00
PROVIDERS: ATTEND Physician Assistant
DX: Z51.5 Encounter for palliative care (principal); Z66 Do not resuscitate; C34.00 Malignant neoplasm of unspecified main bronchus; Z90.2 Acquired absence of lung [part of]; Z92.21 Personal history of antineoplastic chemotherapy; Z92.3 Personal history of irradiation; Z79.891 Long term (current) use of opiate analgesic; Z79.899 Other long term (current) drug therapy; Z79.83 Long term (current) use of bisphosphonates

== ENCOUNTER → 2025-07-19 | Outpatient (REF) | payer MEDICARE, OTHER ==
[2025-07-19 15:56] LABS: BASO # 0.0 10^3/uL (0.0-0.2); BASO % 0.5 % (0.0-1.0); EOS # 0.4 10^3/uL (0.0-0.5); EOS % 6.4 % (0.0-3.0); LYMPH # 0.8 10^3/uL (1.5-5.0); LYMPH % 12.0 % (24.0-44.0); MONO # 0.6 10^3/uL (0.0-0.8); MONO % 10.1 % (2.0-8.0); NEUTROPHILS # 4.4 10^3/uL (1.5-8.5); NEUTROPHILS % 70.7 % (36.0-66.0); PLATELET COUNT, AUTOMATED 172 10^3/uL (150-450)
[2025-07-19 16:40] LABS: CALCIUM LEVEL 9.7 MG/DL (8.3-10.6); CARBON DIOXIDE LEVEL 26.0 MMOL/L (20-31); CHLORIDE LEVEL 108.0 MMOL/L (98-107); CREATININE FOR GFR 1.0 MG/DL (0.55-1.30); GLOMERULAR FILTRATION RATE 60.6 (>39); POTASSIUM SERUM 3.7 MMOL/L (3.5-5.1); SODIUM LEVEL 145.0 MMOL/L (136-145)
== END ==
LOC: M LAB REF 15:44
PROVIDERS: ATTEND Internal Medicine
DX: A41.50 Gram-negative sepsis, unspecified (principal)

== ENCOUNTER → 2025-08-14 | Outpatient (REF) | payer MEDICARE, OTHER ==
[~2025-08-14] MED LIST changes: +POTA-232 PO; -POTA10TA67 PO
== END ==
LOC: M LAB REF 14:14
PROVIDERS: ATTEND Internal Medicine
DX: L03.031 Cellulitis of right toe (principal)

== ENCOUNTER → 2025-08-14 | Outpatient (REF) | payer MEDICARE, OTHER ==
[2025-08-14 14:40] LABS: BASO # 0.0 10^3/uL (0.0-0.2); BASO % 0.3 % (0.0-1.0); EOS # 0.4 10^3/uL (0.0-0.5); EOS % 5.1 % (0.0-3.0); LYMPH # 1.4 10^3/uL (1.5-5.0); LYMPH % 19.0 % (24.0-44.0); MONO # 0.6 10^3/uL (0.0-0.8); MONO % 7.7 % (2.0-8.0); NEUTROPHILS # 4.8 10^3/uL (1.5-8.5); NEUTROPHILS % 67.5 % (36.0-66.0); PLATELET COUNT, AUTOMATED 208 10^3/uL (150-450)
[2025-08-14 15:02] LABS: C REACTIVE PROTEIN QUANTITATIV < 0.50 MG/DL (<1.0); CPK CREATINE PHOSPHOKINASE 37 U/L (34-145)
== END ==
LOC: M LAB REF 14:09
PROVIDERS: ATTEND Internal Medicine Infectious Disease
DX: M79.10 Myalgia, unspecified site (principal); M1A.2710 Drug-induced chronic gout, right ankle and foot, without tophus (tophi)

== ENCOUNTER → 2025-09-04 | Outpatient (CLI) | payer MEDICARE, OTHER ==
[~2025-09-04] VITALS: Ht 162.6 cm; Wt 67.9 kg
[2025-09-04 14:28] VITALS: BP 128/66; O2SAT 97
== END ==
LOC: M PAL 14:01
PROVIDERS: ATTEND Physician Assistant
DX: Z51.5 Encounter for palliative care (principal); C34.90 Malignant neoplasm of unspecified part of unspecified bronchus or lung; Z90.2 Acquired absence of lung [part of]; Z92.21 Personal history of antineoplastic chemotherapy; Z92.3 Personal history of irradiation; Z79.891 Long term (current) use of opiate analgesic; Z79.899 Other long term (current) drug therapy; Z79.83 Long term (current) use of bisphosphonates